=== PATIENT | male | born 1980 | race Hispanic/Latino ===

== ENCOUNTER → 2022-07-14 07:04 | Outpatient (CLI) | payer OTHER, SELFPAY ==
--- NOTE | 2022-07-14 | DI.MRI.S_ITS ---
PROCEDURE: MR CERVICAL SPINE WO CON INDICATIONS: Radiculopathy, cervical region TECHNIQUE: Noncontrast sagittal T1 spin echo and T2 fast spin echo, sagittal STIR, foraminal oblique sagittal T2 fast spin echo, and axial gradient echo or T2 fast spin echo through the cervical spine. COMPARISON: None. FINDINGS: Image quality: Excellent. Alignment and Curvature: There is normal bony alignment. Bone Marrow: Marrow demonstrates normal overall signal. Spinal Cord: Visualized spinal cord has normal size and signal. No cerebellar tonsillar herniation. Paraspinous Soft Tissues: No paravertebral masses. Prevertebral soft tissues are normal in thickness. C2-C3: No significant disc bulge. The foramina and central canal are patent. C3-C4: Uncovertebral hypertrophy on the left causes moderate left foraminal stenosis. The right foramen has mild stenosis. The central canal is patent. C4-C5: Uncovertebral hypertrophy on the left causes moderate left foraminal stenosis. The right foramen is patent. The central canal is patent. C5-C6: Disc space narrowing and endplate degenerative changes with a diffuse disc bulge and uncovertebral hypertrophy causes mild right and severe left foraminal stenosis. The central canal has mild stenosis. C6-C7: No significant disc bulge. The foramina and central canal are patent. C7-T1: No significant disc bulge. The foramina and central canal are patent. IMPRESSION: 1. Degenerative disc disease most prominent at C5-6 causing severe left and mild right foraminal stenosis. 2. Multilevel cervical spondylosis at the remaining levels causing foraminal stenosis as detailed above, predominantly from uncovertebral hypertrophy. 3. No abnormal cord signal. Dictated by: Luis Purcell M.D. on 07/14/2022 at 15:46 Approved by: Luis Purcell M.D. on 07/14/2022 at 15:54
== END ==
PROVIDERS: Referring Provider Student in an Organized Health Care Education/Training Program; Visit Provider Student in an Organized Health Care Education/Training Program
DX: M47.22 Other spondylosis with radiculopathy, cervical region (principal); M50.122 Cervical disc disorder at C5-C6 level with radiculopathy; M48.02 Spinal stenosis, cervical region
CPT/HCPCS: 72141

== ENCOUNTER → 2023-09-13 09:11 | Outpatient (CLI) | payer OTHER, SELFPAY ==
--- NOTE | 2023-09-13 09:13 | DI.RAD.S_ITS ---
PROCEDURE: XR KNEE RT 3V INDICATIONS: pain x 10 yrs TECHNIQUE: 3 views of the knee were acquired. COMPARISON: None. FINDINGS: Bones: No fractures or dislocations. No suspicious bony lesions. Soft tissues: Moderate joint effusion. No suspicious soft tissue calcifications. IMPRESSION: No acute bony abnormality. Moderate effusion. Dictated by: Theresa Troy M.D. on 09/13/2023 at 22:32 Approved by: Theresa Troy M.D. on 09/13/2023 at 22:32
--- NOTE | 2023-09-13 09:13 | DI.RAD.S_ITS ---
PROCEDURE: XR KNEE LT 3V INDICATIONS: pain x 10 yrs TECHNIQUE: 3 views of the knee were acquired. COMPARISON: None. FINDINGS: Bones: No fractures or dislocations. No suspicious bony lesions. Soft tissues: Moderate joint effusion. No suspicious soft tissue calcifications. IMPRESSION: No acute bony abnormality. Dictated by: Theresa Troy M.D. on 09/13/2023 at 22:31 Approved by: Theresa Troy M.D. on 09/13/2023 at 22:32
== END ==
PROVIDERS: PCP Family Medicine; Referring Provider Family Medicine; Visit Provider Family Medicine
DX: M23.51 Chronic instability of knee, right knee (principal); M23.52 Chronic instability of knee, left knee; M25.462 Effusion, left knee; M25.461 Effusion, right knee
CPT/HCPCS: 73562

== ENCOUNTER → 2024-02-13 15:17 | Outpatient (CLI) | payer OTHER, SELFPAY ==
--- NOTE | 2024-02-13 15:18 | DI.MRI.S_ITS ---
PROCEDURE: MR KNEE RT WO CON INDICATIONS: chronic knee pain despite 6 wks PT TECHNIQUE: Noncontrast sagittal PD fast spin echo and T2 fast spin echo with fat saturation, sagittal 3-D FLASH with fat saturation; coronal T1 spin echo and PD fast spin echo with fat saturation, and axial PD fast spin echo with fat saturation through the knee. COMPARISON: [facility], CR, XR KNEE ARTHRITIC SERIES RT, 10/18/2023, 13:01. CR, XR KNEE RT 3V, 09/13/2023, 9:30. FINDINGS: Image quality: Excellent. Menisci: There is horizontal tear in the peripheral aspect of the body of the medial meniscus (series 10, image 18). In addition, there is tear of the free edge of the anterior horn of the medial meniscus (series 10, image 15). The lateral meniscus demonstrates normal morphology and internal signal. The meniscal root ligaments appear intact. Cruciate ligaments: The anterior and posterior cruciate ligaments appear intact. Medial structures: The medial collateral ligament appears intact. The semimembranosus tendon insertions and meniscocapsular junction appear intact. Visualized portions of the pes anserinus tendons appear normal. No abnormal bursal fluid. Lateral structures: The lateral collateral ligament, long and short heads of the biceps femoris tendon appear intact. The popliteus tendon appears normal. Iliotibial band appears normal. Anterior structures: The quadriceps and patellar tendons appear intact. Patellar alignment is normal. No femoral trochlear dysplasia or ventral trochlear prominence. There is edema in the superior lateral aspect of the infrapatellar fat pad. Bones and cartilage: No bone marrow contusions or fractures. There are cartilage thinning full-thickness cartilage fissures in patella, more pronounced in the lateral facet. Mild reactive edema in the inferior aspect of patella. Mild cartilage fibrillation in the femorotibial compartments with relatively preserved overall thickness. Joint space: There is small knee joint fluid. There is a tiny Corral's cyst. Normal appearing synovial plicae are incidentally noted. IMPRESSION: 1. Edema in the superior lateral aspect of the infrapatellar fat pad consistent with patellar tendon lateral femoral condyle friction syndrome. 2. Medial meniscal tear as described. 3. Chondromalacia patella. There full-thickness cartilage fissures in patella. 4. Small knee joint effusion. 5. A tiny Corral's cyst. Dictated by: Ab Monet M.D. on 02/14/2024 at 9:16 Approved by: Ab Monet M.D. on 02/14/2024 at 9:27
--- NOTE | 2024-02-13 15:18 | DI.MRI.S_ITS ---
PROCEDURE: MR KNEE LT WO CON INDICATIONS: chronic knee pain despite 6 wks PT TECHNIQUE: Noncontrast sagittal PD fast spin echo and T2 fast spin echo with fat saturation, sagittal 3-D FLASH with fat saturation; coronal T1 spin echo and PD fast spin echo with fat saturation, and axial PD fast spin echo with fat saturation through the knee. COMPARISON: [facility], CR, XR KNEE ARTHRITIC SERIES RT, 10/18/2023, 13:01. CR, XR KNEE LT 3V, 09/13/2023, 9:30. CR, XR KNEE RT 3V, 09/13/2023, 9:30. FINDINGS: Image quality: Excellent. Menisci: The medial and lateral menisci demonstrate normal morphology and internal signal. The meniscal root ligaments appear intact. Cruciate ligaments: The anterior and posterior cruciate ligaments appear intact. Medial structures: The medial collateral ligament appears intact. The semimembranosus tendon insertions and meniscocapsular junction appear intact. Visualized portions of the pes anserinus tendons appear normal. No abnormal bursal fluid. Lateral structures: The lateral collateral ligament, long and short heads of the biceps femoris tendon appear intact. The popliteus tendon appears normal. Iliotibial band appears normal. Anterior structures: The quadriceps and patellar tendons appear intact. There is partial tear and tendinitis of the quadriceps. Patellar tendon is intact. Patellar alignment is normal. No femoral trochlear dysplasia or ventral trochlear prominence. There is edema in the superior lateral aspect of infrapatellar fat pad. Edema is also present in the suprapatellar fat pad, suggesting fat pad impingement. Bones and cartilage: No bone marrow contusions or fractures. There is tricompartmental cartilage fibrillation with relatively preserved cartilage thickness. Joint space: There is small knee joint effusion. There is a tiny Corral's cyst. Normal appearing synovial plicae are incidentally noted. IMPRESSION: 1. Edema in the superior lateral aspect of the infrapatellar fat pad compatible with patellar tendon lateral femoral condyle friction syndrome. 2. Partial tear and tendinitis of the quadriceps tendon. Suprapatellar fat pad edema, likely reactive and related to quadriceps tendinitis. 3. 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 4. Small knee joint effusion. 5. A tiny bakers cyst. Dictated by: Ab Monet M.D. on 02/14/2024 at 9:13 Approved by: Ab Monet M.D. on 02/14/2024 at 9:41
== END ==
LOC: MRI 15:17
PROVIDERS: PCP Family Medicine; Referring Provider Family Medicine; Visit Provider Family Medicine
DX: M23.51 Chronic instability of knee, right knee (principal); M23.52 Chronic instability of knee, left knee; S83.241A Other tear of medial meniscus, current injury, right knee, initial encounter; M22.41 Chondromalacia patellae, right knee; M25.461 Effusion, right knee; S76.112A Strain of left quadriceps muscle, fascia and tendon, initial encounter; M76.52 Patellar tendinitis, left knee; M17.12 Unilateral primary osteoarthritis, left knee; M25.462 Effusion, left knee; M25.569 Pain in unspecified knee; G89.29 Other chronic pain
CPT/HCPCS: 73721

== ENCOUNTER → 2024-09-15 09:02 | Outpatient (CLI) | payer OTHER, SELFPAY ==
[2024-09-15 09:54] LABS: Hematocrit 40.2 % (41-53); Hemoglobin 13.9 g/dL (13.5-17.5); Mean Corpuscular HGB Conc 34.7 % (30-36); Mean Corpuscular Hemoglobin 30.4 PG (26-34); Mean Corpuscular Volume 87.6 fL (80-100); Platelet Count 259 X10^3/uL (150-400); Red Blood Cell Count 4.59 X10^6/uL (4.5-5.9); Red Cell Distribution Width 12.7 % (11.6-14.8); White Blood Cell Count 4.4 X10^3/uL (4.5-11.0)
[2024-09-15 10:17] LABS: Alanine Aminotransferase 44 IU/L (<50); Albumin 4.3 g/dL (3.5-5.0); Albumin Globulin Ratio 1.3 (1.0-2.8); Alkaline Phosphatase 43 U/L (38-126); Aspartate Aminotransferase 36 IU/L (17-59); BUN Creatinine Ratio 12.2 (6-22); Bilirubin Total 1.3 mg/dL (0.2-1.3); Blood Urea Nitrogen 11 mg/dL (9-20); Calcium 9.9 mg/dL (8.4-10.2); Carbon Dioxide 28 mmol/L (22-32); Chloride 103 mmol/L (98-107); Cholesterol 170 mg/dL (140-199); Estimated Glomerular Filt Rate > 60 mL/min (>60); Globulin 3.2 g/dL (1.7-4.1); Glucose 103 mg/dL (70-100); HDL Cholesterol 46 mg/dL (40-60); HEMOLYSIS < 15 (0-50); LDL Cholesterol Calculated 105 mg/dL (<100); Potassium 4.4 mmol/L (3.4-5.1); Sodium 135 mmol/L (137-145); Total Protein 7.5 g/dL (6.3-8.2); Triglycerides 95 mg/dL (35-150)
[2024-09-15 11:06] LABS: HIV 1 & 2 Ab/Ag 4th Gen Combo NEGATIVE (NEGATIVE); Hep C Virus Ab w/Reflex Quant NEGATIVE s/c (NEGATIVE)
== END ==
LOC: LAB 09:04
PROVIDERS: PCP Family Medicine; Referring Provider Family Medicine; Visit Provider Family Medicine
DX: Z00.00 Encounter for general adult medical examination without abnormal findings (principal)
CPT/HCPCS: 36415; 80053; 80061; 85027; 86803; 87389

== ENCOUNTER → 2024-12-18 14:11 | Outpatient (CLI) | payer OTHER, SELFPAY ==
--- NOTE | 2024-12-18 14:14 | DI.RAD.S_ITS ---
PROCEDURE: XR LUMBAR SPINE 2-3V INDICATIONS: Spondylosis without myelopathy or radiculopathy, lumbosacral TECHNIQUE: 3 views of the lumbar spine were acquired. COMPARISON: None. FINDINGS: Lumbar spine curvature and alignment: Normal. Bones: There are no osseous abnormalities. Disc spaces: Mild L5-S1 degenerative disc and facet disease noted Soft tissues: No soft tissue swelling, calcification or mass. IMPRESSION: Mild L5-S1 degenerative disc and facet disease Dictated by: All Vidal M.D. on 12/19/2024 at 8:01 Approved by: All Vidal M.D. on 12/19/2024 at 8:02
== END ==
LOC: RAD 14:13
PROVIDERS: PCP Family Medicine; Referring Provider Chiropractor; Visit Provider Chiropractor
DX: M47.817 Spondylosis without myelopathy or radiculopathy, lumbosacral region (principal); M51.379 Other intervertebral disc degeneration, lumbosacral region without mention of lumbar back pain or lower extremity pain
CPT/HCPCS: 72100

== ENCOUNTER → 2025-07-20 07:34 | Outpatient (CLI) | payer OTHER, SELFPAY | LOC: LAB 07:35 | PROVIDERS: PCP Family Medicine; Visit Provider Nurse Practitioner Family | DX: L08.9 Local infection of the skin and subcutaneous tissue, unspecified (principal) | CPT/HCPCS: 87070; 87077; 87147; 87205 ==